=== PATIENT | male | born 1975 | race Caucasian/White ===

== ENCOUNTER 2024-04-17 20:25 | Emergency (ER) | payer OTHER ==
--- NOTE | 2024-04-17 21:50 | RAD REPORT ---
EXAM DESCRIPTION: CT - Stone Protocol - 04/17/2024 9:29 pm CLINICAL HISTORY: Flank pain. FLANK PAIN COMPARISON: <Comparisons> TECHNIQUE: Axial images were obtained without oral or IV contrast. Lack of contrast limits solid org an and vascular assessment. The [id number] spans the entirety of the system partially obscuring uppermost abdomen and lung bases. Coronal reformatted images were obtained and reviewed. All CT scans are performed using dose optimization technique as appropriate and may include automated exposure control or mA/KV adjustment according to patient size. FINDINGS: The lower lung mosquera are clear. Imaged portions of the liver and spleen show no suspicious findings on non-contrast imaging. The panc reas and adrenal glands are normal. No pathologic lymphadenopathy in the abdomen or pelvis. 2 mm stone is seen in the proximal right ureter with mild right hydronephrosis. No left-sided stone o r hydronephrosis. No bowel obstruction, free air, free fluid or abscess. Normal appendix noted.Small fat containing umb ilical hernia. No significant bony abnormality. IMPRESSION: 2 mm stone is seen proximal right ureter resulting in mild right hydronephrosis.
[2024-04-17] MEDS ORDERED: ONDANSETRON 4 MG/2 ML VIAL ONE (21:56)
[2024-04-17] MEDS ORDERED: NA CHLORIDE 0.9% 1,000 ML ONE (21:57)
[2024-04-17] MEDS ORDERED: MORPHINE 4 MG/ML SYR ONE (21:57)
[2024-04-17 22:08] LABS: Absolute Lymphocytes (CBC) 1.6 K/uL (0.7-4.9); Absolute Monocytes 1.1 K/uL (0.1-1.3); Absolute Neutrophil 13.3 K/uL (1.8-8.0); Basophils % 0.2 % (0-1.3); Eosinophils % 0.3 % (0-4.4); Hemoglobin 13.7 g/dL (13.6-17.9); Lymphocytes % 9.7 % (15.3-44.8); MCH 28.8 pg (27.0-35.0); MCHC 31.7 g/dL (32.0-36.0); MCV 90.9 fL (80-100); MPV 8.4 fL (7.6-11.3); Monocytes % 6.6 % (3.3-12.3); Neutrophils % 83.2 % (41.7-73.7); Platelets 329 thou/uL (152-406); RBC Red Blood Cell Count 4.73 M/uL (4.33-5.43); Red Cell Distribution Width 13.8 % (12.1-15.2)
[2024-04-17 22:26] LABS: Albumin 4.1 g/dL (3.4-5.0); Albumin/Globulin Ratio 1.2 (1.1-1.8); Anion Gap 11.6 mEq/L (5.0-15.0); Bilirubin Total 0.6 mg/dL (0.2-1.0); Globulin 3.3 g/dL (2.3-3.5); Potassium 3.6 mEq/L (3.5-5.1); Protein, Total 7.4 g/dL (6.4-8.2)
[2024-04-17] MEDS ORDERED: KETOROLAC 30 MG/ML INJ ONE (22:28)
[2024-04-17 22:33] LABS: Specific Gravity > 1.030 (1.005-1.030); Sqamous Epithelial <5 /HPF (None Seen); Urine Bacteria None Seen /HPF (<20); Urine Bilirubin NEGATIVE (Negative); Urine Blood 3+ (OVER) (Negative); Urine Clarity Extremely Turbid (Clear); Urine Color Yellow (Yellow); Urine Culture Reflex Order NOT NEEDED; Urine Glucose NEGATIVE (Negative); Urine Ketones 3+ (Negative); Urine Microscopic Reflex YN ORDER UMIC; Urine Mucus 4+ /HPF (None Seen); Urine Nitrite NEGATIVE (Negative); Urine Protein 2+ (Negative); Urine RBC >50 /HPF (None Seen); Urine Urobilinogen 1+ (Normal); Urine pH 5.5 (5.0-7.0)
--- NOTE | 2024-04-17 23:11 | ER ---
Nurse's Notes [facility] Name: Kaylyn Cartwright Age: 49 yrs Sex: Male : 1975 Arrival Date: 04/17/2024 Time: 20:25 Bed 17 Private MD: Diagnosis: Calculus of ureter Presentation: 04/17 21:03 Chief complaint: Patient states: Right sided flank pain that radiates to abdomen onset cm10 today. Coronavirus screen: Client denies travel out of the [place] in the last 14 days. At this time, the client does not indicate any symptoms associated with coronavirus-19. Ebola Screen: Patient denies travel to an Ebola-affected area in the 21 days before illness onset. No symptoms or risks identified at this time. Initial Sepsis Screen: Does the patient meet any 2 criteria? No. Patient's initial sepsis screen is negative. Does the patient have a suspected source of infection? No. Patient's initial sepsis screen is negative. Risk Assessment: Do you want to hurt yourself or someone else? Patient reports no desire to harm self or others. Onset of symptoms was April 17, 2024. 21:03 Method Of Arrival: Ambulatory cm10 21:03 Acuity: REVA 3 cm10 Triage Assessment: 21:05 General: Appears in no apparent distress. uncomfortable, Behavior is calm, cooperative. cm10 Neuro: No deficits noted. Level of Consciousness is awake, alert, obeys commands, Oriented to person, place, time, situation, Appropriate for age. Respiratory: No deficits noted. Airway is patent Respiratory effort is even, unlabored, Respiratory pattern is regular, symmetrical. Historical: - Allergies: 21:04 No Known Allergies; cm10 - Home Meds: 21:04 None [Active]; cm10 - PMHx: 21:04 Kidney stone; cm10 - PSHx: 21:04 None; cm10 - Immunization history:: Adult Immunizations up to date. - Infectious Disease History:: Denies. - Social history:: Smoking status: Patient denies any tobacco usage or history of. Screenin:15 [facility] ED Fall Risk Assessment (Adult) History of falling in the last 3 months, me1 including since admission No falls in past 3 months (0 pts) Confusion or Disorientation No (0 pts) Intoxicated or Sedated No (0 pts) Impaired Gait No (0 pts) Mobility Assist Device Used No (0 pt) Altered Elimination No (0 pt) Score/Fall Risk Level 0 - 2 = Low Risk Maintained a safe environment, Provided non-skid footwear, Hourly rounding (assess needs \T\ fall precautionary measures) done. Abuse screen: Denies threats or abuse. Nutritional screening: No deficits noted. Tuberculosis screening: No symptoms or risk factors identified. Assessment: 21:15 General: Appears uncomfortable, well groomed, well developed, well nourished, Behavior me1 is calm, cooperative, appropriate for age, Reports Right sided flank pain that radiates to abdomen onset today. Pain: Complains of pain in right lower quadrant Pain radiates to right low back Pain currently is 10 out of 10 on a pain scale. Quality of pain is described as sharp, shooting, Pain began suddenly, Is continuous. Neuro: Level of Consciousness is awake, alert, obeys commands, Oriented to person, place, time, situation, Appropriate for age. Cardiovascular: Patient's skin is warm and dry. Respiratory: Airway is patent Trachea midline Respiratory effort is even, unlabored, Respiratory pattern is regular, symmetrical. GI: Abdomen is round non-distended, Bowel sounds present X 4 quads. Abd is soft X 4 quads Reports lower abdominal pain. : Reports pain in right flank(s), lower quadrant(s). EENT: No signs and/or symptoms were reported regarding the EENT system. Derm: Skin is intact, is healthy with good turgor, Skin is pink, warm \T\ dry. Musculoskeletal: No signs and/or symptoms reported regarding the musculoskeletal system. Vital Signs: 21:03 BP 126 / 89; Pulse 66; Resp 18; Temp 97.1; Pulse Ox 100% ; Weight 90.72 kg; Height 5 cm10 ft. 9 in. ; Pain 10/10; 22:00 BP 121 / 76; Pulse 55; Resp 17; Pulse Ox 99% on R/A; Pain 10/10; me1 23:00 BP 125 / 78; Pulse 81; Resp 16; Temp 98.2(O); Pulse Ox 96% on R/A; me1 21:03 Body Mass Index 29.53 (90.72 kg, 175.26 cm) cm10 21:03 Pain Scale: Adult cm10 22:00 Pain Scale: Adult me1 ED Course: 20:27 Patient arrived in ED. jj6 20:32 Yeimy Gonzalez [facility]-C [facility]. kb 20:32 Emanuel Rutledge MD is Attending Physician. kb 21:04 Triage completed. cm10 21:05 Arm band placed on Patient placed in an exam room, on a stretcher. cm10 21:15 Patient has correct armband on for positive identification. Bed in low position. Call me1 light in reach. Side rails up X2. Provided Education on: POC. Verbalized understanding. . Client placed on continuous cardiac and pulse oximetry monitoring. NIBP monitoring applied. Pulse ox on. NIBP on. 21:15 No provider procedures requiring assistance completed. me1 21:30 CT Stone Protocol In Process Unspecified. EDMS 21:37 Ashley Fleming, RN is Primary Nurse. me1 21:59 CBC with Diff Sent. cm10 21:59 CMP Sent. cm10 21:59 Lipase Sent. cm10 21:59 Initial lab(s) drawn, by wa, sent to lab. Inserted saline lock: 22 gauge in left hand, cm10 using aseptic technique. Blood collected. Flushed with 10 mL NS. 23:35 IV discontinued, intact, bleeding controlled, No redness/swelling at site. Pressure me1 dressing applied. Administered Medications: 21:59 Drug: Ondansetron IVP 4 mg IVP once; over 2 minutes Route: IVP; Site: left hand; cm10 23:21 Follow up: Response: No adverse reaction; Nausea is decreased me1 21:59 Drug: morphine IVP or IV 4 mg IVP once over 4 mins Route: IVP; Infused Over: 4 mins; cm10 Site: left hand; 23:21 Follow up: Response: No adverse reaction; Pain is decreased me1 22:10 Drug: NS 0.9% IV 1000 ml IV at 1 bolus Per protocol; 1000 mL bolus Route: IV; Rate: 1 me1 bolus; Site: left hand; 23:20 Follow up: Response: No adverse reaction; IV Status: Completed infusion; IV Intake: me1 1000ml 22:32 Drug: Ketorolac IVP 15 mg IVP once Route: IVP; Site: left hand; me1 23:20 Follow up: Response: No adverse reaction; Pain is decreased me1 23:20 Drug: Flomax PO 0.4 mg PO once Route: PO; me1 23:37 Follow up: Response: No adverse reaction me1 Medication: 21:15 VIS not applicable for this client. me1 Intake: 23:20 IV: 1000ml; Total: 1000ml. me1 Outcome: 23:10 Discharge ordered by MD. dang 23:35 Discharged to home ambulatory, with significant other, me1 23:35 Condition: stable 23:35 Instructed on discharge instructions, follow up and referral plans. medication usage, Demonstrated understanding of instructions, follow-up care, medications, Prescriptions given X 3, 23:36 Patient left the ED. me1 Signatures: Dispatcher [employer] EDMS Yeimy Gonzalez, FRUIT FARMER-C FRUIT FARMER-CkAmy Xavier [id number] Ambika Galarza, LEOPOLDO RN cm10 Ashley Fleming RN RN me1 Corrections: (The following items were deleted from the chart) 23:21 21:03 Chief complaint: Patient states: Right sided flank pain that radiates to abdomen me1 onset today. cm10
--- NOTE | 2024-04-17 23:11 | EDPHYS ---
Physician Documentation [facility] Name: Kaylyn Cartwright Age: 49 yrs Sex: Male : 1975 Arrival Date: 04/17/2024 Time: 20:25 Bed 17 Private MD: ED Physician Emanuel Rutledge HPI: 04/17 23:14 This 49 yrs old Male presents to ER via Ambulatory with complaints of Possible Kidney kb Stone. 23:14 Pt is a 49 year old male who presents for right flank pain that radiates to RLQ that kb started today. States he has had a kidney stone in the past and this feels the same. Denies urinary symptoms or fever. . Historical: - Allergies: 21:04 No Known Allergies; cm10 - Home Meds: 21:04 None [Active]; cm10 - PMHx: 21:04 Kidney stone; cm10 - PSHx: 21:04 None; cm10 - Immunization history:: Adult Immunizations up to date. - Infectious Disease History:: Denies. - Social history:: Smoking status: Patient denies any tobacco usage or history of. ROS: 23:13 Constitutional: As per HPI kb Exam: 23:13 Constitutional: This is a well developed, well nourished patient who is awake, alert, kb and in no acute distress. Head/Face: Normocephalic, atraumatic. ENT: Moist Mucous membranes Cardiovascular: Regular rate Respiratory: Respirations even and unlabored. No increased work of breathing. Talking in full sentences Skin: Warm, dry with normal turgor. Normal color. MS/ Extremity: Pulses equal, no cyanosis. Neurovascular intact. Full, normal range of motion. Neuro: Awake and alert, GCS 15, oriented to person, place, time, and situation. Moves all extremities. Normal gait. 23:13 Abdomen/GI: Inspection: abdomen appears normal, Bowel sounds: normal, Palpation: soft, in all quadrants, mild abdominal tenderness, in the right lower quadrant, 23:13 Back: CVA tenderness, that is mild, is noted on the right, Vital Signs: 21:03 BP 126 / 89; Pulse 66; Resp 18; Temp 97.1; Pulse Ox 100% ; Weight 90.72 kg; Height 5 cm10 ft. 9 in. ; Pain 10/10; 22:00 BP 121 / 76; Pulse 55; Resp 17; Pulse Ox 99% on R/A; Pain 10/10; me1 23:00 BP 125 / 78; Pulse 81; Resp 16; Temp 98.2(O); Pulse Ox 96% on R/A; me1 21:03 Body Mass Index 29.53 (90.72 kg, 175.26 cm) cm10 21:03 Pain Scale: Adult cm10 22:00 Pain Scale: Adult me1 MDM: 20:32 Patient medically screened. kb 23:13 Differential diagnosis: uti, kidney stone, appendicitis. Data reviewed: vital signs, kb nurses notes. Historians other than the Patient: Spouse/Significant Other: . Counseling: I had a detailed discussion with the patient and/or guardian regarding the historical points, exam findings, and any diagnostic results supporting the discharge/admit diagnosis, lab results, radiology results, the need for outpatient follow up, a urologist, to return to the emergency department if symptoms worsen or persist or if there are any questions or concerns that arise at home. ED course: Pain resolved after toradol. 04/17 21:07 Order name: CBC with Diff; Complete Time: 22:13 cm10 04/17 21:07 Order name: CMP; Complete Time: 22:26 cm10 04/17 21:07 Order name: Lipase; Complete Time: 22:26 cm10 04/17 21:07 Order name: Urinalysis w/ reflexes; Complete Time: 22:34 cm10 04/17 21:07 Order name: CT Stone Protocol; Complete Time: 21:53 cm10 04/17 21:07 Order name: IV Saline Lock; Complete Time: 21:59 cm10 04/17 21:07 Order name: Labs collected and sent; Complete Time: 21:59 cm10 Administered Medications: 21:59 Drug: Ondansetron IVP 4 mg IVP once; over 2 minutes Route: IVP; Site: left hand; cm10 23:21 Follow up: Response: No adverse reaction; Nausea is decreased me1 21:59 Drug: morphine IVP or IV 4 mg IVP once over 4 mins Route: IVP; Infused Over: 4 mins; cm10 Site: left hand; 23:21 Follow up: Response: No adverse reaction; Pain is decreased me1 22:10 Drug: NS 0.9% IV 1000 ml IV at 1 bolus Per protocol; 1000 mL bolus Route: IV; Rate: 1 me1 bolus; Site: left hand; 23:20 Follow up: Response: No adverse reaction; IV Status: Completed infusion; IV Intake: me1 1000ml 22:32 Drug: Ketorolac IVP 15 mg IVP once Route: IVP; Site: left hand; me1 23:20 Follow up: Response: No adverse reaction; Pain is decreased me1 23:20 Drug: Flomax PO 0.4 mg PO once Route: PO; me1 23:37 Follow up: Response: No adverse reaction me1 Disposition: 04/18 00:33 Co-signature as Attending Physician, Emanuel Rutledge MD I agree with the assessment sp4 and plan of care. I reviewed the patient's care provided by the Advanced Practice Provider and agree with the diagnosis and treatment plan. Disposition Summary: 04/17/24 23:10 Discharge Ordered Notes: Location: Home kb Condition: Stable kb Diagnosis - Calculus of ureter kb Followup: kb - With: Emergency Department - When: As needed - Reason: Worsening of condition Followup: kb - With: Private Physician - When: 2 - 3 days - Reason: Recheck today's complaints, Continuance of care, Re-evaluation by your physician Discharge Instructions: - Discharge Summary Sheet kb - Kidney Stones, [id number] kb - Dietary Guidelines to Help Prevent Kidney Stones kb Forms: - Medication Reconciliation Form kb - Antibiotic Education kb - Prescription Opioid Use kb - Patient Portal Instructions kb - Leadership Thank You Letter kb Prescriptions: - Flomax 0.4 mg Oral capsule - take 1 capsule ORAL route daily for 10 days; 10 capsule; Refills: 0, Product kb Selection Permitted - Zofran 4 mg Oral tablet - take 1 tablet ORAL route every 6 hours As needed; 12 tablet; Refills: 0, kb Product Selection Permitted - Diclofenac Sodium 75 mg Oral tablet, delayed release (enteric coated) - take 1 tablet ORAL route 2 times per day As needed; 30 tablet; Refills: 0, kb Product Selection Permitted Signatures: Dispatcher [employer] Yeimy Tomlin FNP-C FNP-Ckb Potepalov, Sergey, MD MD sp4 Ambika Galarza RN RN cm10 Ashley Fleming RN RN me1
[2024-04-17] MEDS ORDERED: TAMSULOSIN 0.4 MG SR CAP ONE (23:19)
[2024-04-17 23:57] VITALS: BP 125/78; TEMP 98.2; O2SAT 96
== END 2024-04-17 23:36 | disposition home or self-care (01) ==
LOC: ER 20:25
DX: N20.1 Calculus of ureter (principal); Z87.442 Personal history of urinary calculi
CPT/HCPCS: 96361; 85025; 81001; 36415; 83690; 80053; 76377; 74176; 96375; 96374; 99284; J2405; J7030